=== PATIENT | male | born 1970 | race Two or more races ===

== ENCOUNTER 2017-07-01 14:19 | Emergency (ER) | payer BC ==
[2017-07-01 14:46] VITALS: BP 155/72
--- NOTE | 2017-07-01 15:18 | UC ---
Throat Pain/Nasal Aki HPI - HPI Summary HPI Summary: Patient presents with an unremarkable past medical history. He presents today with one day onset complaints of throat pain, he states his daughter is recovering from strep throat. He states he is able to eat, drink and swallow his own secretions. He denies fever, chills, neck pain, abdominal pain, nausea, vomiting, or diarrhea. - History of Current Complaint Chief Complaint: UCRespiratory Stated Complaint: SORE THROAT Time Seen by Provider: 07/01/17 14:42 Onset/Duration: Gradual Onset, Lasting Days Severity: Mild Associated Signs & Symptoms: Positive: Negative - Epiglottits Risk Factors Epiglottis Risk Factors: Negative - Allergies/Home Medications Allergies/Adverse Reactions: Allergies Allergy/AdvReac Type Severity Reaction Status Date / Time No Known Allergies Allergy Verified 07/01/17 14:46 PMH/Surg Hx/FS Hx/Imm Hx Previously Healthy: Yes - Surgical History Surgical History: None - Family History Known Family History: Positive: Cardiac Disease, Diabetes - Social History Occupation: Employed Full-time Lives: With Family Alcohol Use: Daily Substance Use Type: None Smoking Status (MU): Never Smoked Tobacco - Immunization History Most Recent Influenza Vaccination: 2014/2015 Most Recent Tetanus Shot: UTD Review of Systems Constitutional: Negative Skin: Negative Eyes: Negative ENT: Sore Throat Respiratory: Negative Cardiovascular: Negative Gastrointestinal: Negative Genitourinary: Negative Motor: Negative Neurovascular: Negative Musculoskeletal: Negative Neurological: Negative Psychological: Negative Is Patient Immunocompromised?: No All Other Systems Reviewed And Are Negative: Yes Physical Exam Triage Information Reviewed: Yes Appearance: Well-Appearing Vital Signs: Initial Vital Signs Temp 97.8 F 07/01/17 14:43 Pulse 58 07/01/17 14:43 Resp 15 07/01/17 14:43 BP 155/72 07/01/17 14:43 Pulse Ox 100 07/01/17 14:43 Vital Signs Reviewed: Yes Eye Exam: Normal ENT: Positive: Pharyngeal erythema Dental Exam: Normal Neck exam: Normal Neck: Positive: 1 Respiratory Exam: Normal Cardiovascular Exam: Normal Abdominal Exam: Normal Skin Exam: Normal Throat Pain/Nasal Course/Dx - Course Course Of Treatment: Patient presents with complaints of one day onset sore throat. He has normal vital signs, a non-toxic appearance and rapid strep was negative at this time. Given the fact that he has exposure he is i agreement to watchful waiting and see if his symtpoms improve, otherwise I have sent a RX to the pharmacy in case his sytmpoms get worse he will start the antibiotis. He verbalized understanding and was in agreement with the discharge plan. - Differential Dx/Diagnosis Differential Diagnosis/HQI/PQRI: Pharyngitis Provider Diagnoses: pharyngitis Discharge - Discharge Plan Condition: Stable Disposition: HOME Prescriptions: Penicillin VK TAB* [Penicillin VK 250 mg Tab*] 500 mg PO QID #40 tab Patient Education Materials: Pharyngitis (ED) Referrals: Filomena Zarco DO [Primary Care Provider] -
== END 2017-07-01 15:14 | disposition home or self-care (01) ==
LOC: UCEAST 14:19
DX: J02.9 Acute pharyngitis, unspecified (principal)
CPT/HCPCS: 87651; 99212; G0463

== ENCOUNTER 2019-01-29 07:43 | Emergency (ER) | payer BC ==
[2019-01-29 07:56] VITALS: BP 131/81
--- NOTE | 2019-01-29 08:11 | UC ---
HPI Febrile Illness - HPI Summary HPI Summary: Patient is a 48-year-old male here with suspected Lyme disease. Patient had an unknown bug bite 2 weeks ago on his lower back camping. Patient did not know of a tick bit him. On Sunday, patient developed subjective fevers, left jaw pain, shoulder pain, generalized fatigue. Patient had no identifiable rash. Patient has no cough, runny nose, nasal congestion, sore throat, vomiting, diarrhea, abdominal pain, chest pain. Patient is going out of town on Sunday and wants to make sure he is not sick by then. - History of Current Complaint Chief Complaint: UCGeneralIllness Time Seen by Provider: 01/29/19 08:01 Pain Intensity: 4 - Allergy/Home Medications Allergies/Adverse Reactions: Allergies Allergy/AdvReac Type Severity Reaction Status Date / Time No Known Allergies Allergy Verified 01/29/19 07:49 PMH/Surg Hx/FS Hx/Imm Hx Previously Healthy: Yes - Surgical History Surgical History: None - Family History Known Family History: Positive: Cardiac Disease, Diabetes - Social History Alcohol Use: None Substance Use Type: None Smoking Status (MU): Never Smoked Tobacco - Immunization History Most Recent Influenza Vaccination: 2014/2015 Most Recent Tetanus Shot: UTD Review of Systems All Other Systems Reviewed And Are Negative: Yes Constitutional: Positive: Fever, Chills Skin: Negative: Rash Eyes: Negative: Blurred Vision, Diplopia ENT: Positive: Sore Throat, Sinus Congestion Respiratory: Negative: Cough Cardiovascular: Positive: Negative Gastrointestinal: Positive: Negative Genitourinary: Positive: Negative Motor: Positive: Negative Neurovascular: Positive: Negative Musculoskeletal: Positive: Negative. Negative: Arthralgia Physical Exam - Summary Physical Exam Summary: Vital Signs Reviewed: Yes A+Ox3, no distress Eyes: Conjunctiva Clear, PERRL. EOM intact and full ENT: Hearing grossly normal TM x 2 clear, moist, uvula midline, no exudate, no erythema Neck: Positive: Supple Respiratory: Positive: No respiratory distress, No accessory muscle use + CTA throughout no w/r Cardiovascular: RRR nl s1, s2 no m/r CBT <2 sec abd soft + BS nt/nd no guarding, no distension Musculoskeletal Exam: TORRES x 4 without difficulty Strength Intact, ROM Intact Neurological: Positive: Alert, + sensation throughout Psychological: Positive: Normal Response To Family Skin: Positive: no rash, no ecchymosis Triage Information Reviewed: Yes Vital Signs: Initial Vital Signs Temp 98.2 F 01/29/19 07:49 Pulse 64 01/29/19 07:49 Resp 16 01/29/19 07:49 BP 131/81 01/29/19 07:49 Pulse Ox 98 01/29/19 07:49 Course/Dx - Course Course Of Treatment: Patient is here with symptoms that can be consistent with a mild viral syndrome. Patient is concerned about Lyme disease given a recent bug bite which could be a tick. Patient's history is not consistent with classic Lyme disease so he will not be treated empirically. Patient had a Lyme test sent off and will follow-up on the results when they return. - Febrile Illness Differential Diagnoses: [place] Spotted Fever, Sepsis, Viremia, Other: - Viral infection, Lyme disease - Diagnoses Provider Diagnosis: Chills, Nasal congestion, Bug bite Discharge - Sign-Out/Discharge Documenting (check all that apply): Patient Departure All imaging exams completed and their final reports reviewed: No Studies - Discharge Plan Condition: Stable Disposition: HOME Patient Education Materials: Weakness (ED) Referrals: Filomena Zarco DO [Primary Care Provider] - Additional Instructions: Please take ibuprofen for pain We will call you if you lyme test comes back positive - Billing Disposition and Condition Condition: STABLE Disposition: Home
== END 2019-01-29 08:26 | disposition home or self-care (01) ==
LOC: UCEAST 07:43
DX: R68.83 Chills (without fever) (principal); R09.81 Nasal congestion; S30.860A Insect bite (nonvenomous) of lower back and pelvis, initial encounter; W57.XXXA Bitten or stung by nonvenomous insect and other nonvenomous arthropods, initial encounter; Y93.89 Activity, other specified; Y92.833 Campsite as the place of occurrence of the external cause; Y99.8 Other external cause status
CPT/HCPCS: 36415; 86618; 99211; G0463